=== PATIENT | female | born 1935 | race Hispanic/Latino ===

== ENCOUNTER 2020-02-15 12:21 | Inpatient (IN) | payer MEDICARE ==
--- NOTE | 2020-02-15 13:08 | RAD ---
EXAM: Single view of the chest HISTORY: Dyspnea and high blood glucose COMPARISON: 09/23/2010 FINDINGS: Single view of the chest shows an enlarged but stable cardiomediastinal silhouette. Increa sed interstitial markings are present. There may be superimposed airspace opacities overlying both lower lobes. No acute osseous abnormality. IMPRESSION: Bilateral lower lung infiltrates
[2020-02-15 13:32] LABS: #Lymphocytes 1.4 thou/uL (1.20-3.40); #Monocytes 0.4 thou/uL (0.11-0.59); #Neutrophils 3.7 thou/uL (1.40-6.50); %Basophils 0.3 % (0.0-1.0); %Eosinophils 0.3 % (0.0-10.0); %Lymphocytes 25.7 % (21.0-51.0); %Monocytes 6.7 % (0.0-10.0); Hemoglobin 14.1 g/dL (12.0-16.0); Mean Corpuscular HGB CONC 32.5 g/dL (32.0-36.0); Mean Corpuscular Volume 95.4 fL (78.0-98.0); Mean Platelet Volume 8.2 fL (7.4-10.4); Platelet Count 231 thou/uL (130-400); RBC Distribution Width 12.6 % (11.5-14.5); Red Blood Cell (RBC) Count 4.54 mill/uL (4.20-5.40); White Blood Cell (WBC) Count 5.5 thou/uL (4.8-10.8)
[2020-02-15 13:36] LABS: Actual Bicarbonate (HCO3a) 24.2 mEq/L (22-28); Analyzer IN Cardio ER; Base Excess (BEa) 0.2 mEq/L (-2.0 to +3.0); CO2 Tension 37.3 mmHg (35.0-45.0); Carboxyhemoglobin (COHb) 0.2 gm% (0.0-3.0); Hemoglobin (Hb) 14.3 g/dL (12.0-16.0); O2 Tension (PaO2), arterial 68.9 mmHg (> 60.0); Potassium - ABG Lab 4.49 mmol/L (3.70-5.30); pH, Arterial 7.43 (7.35-7.45)
[2020-02-15 13:38] LABS: ALV-art Gradient 84.115 mmHg (0-20); Puncture Site RRA
[2020-02-15 13:55] LABS: ALT (SGPT) 13 U/L (8-55); AST (SGOT) 26 U/L (5-34); Albumin 3.5 g/dL (3.4-4.8); Alkaline Phosphatase 60 U/L (40-110); Anion Gap 18 mmol/L (10-20); BUN (Urea Nitrogen) 30 mg/dL (9.8-20.1); Bilirubin, Total 0.2 mg/dL (0.2-1.2); Calc. Creatinine Clearance 0 mL/min (70-130); Carbon Dioxide 23 mmol/L (23-31); Chloride 97 mmol/L (98-107); Estimated GFR-MDRD 54; Globulin 3.9 g/dL (2.4-3.5); Glucose 429 mg/dL (83-110); Lipase 27 U/L (8-78); Magnesium 1.8 mg/dL (1.6-2.6); Potassium 4.6 mmol/L (3.5-5.1); Protein, Total 7.4 g/dL (6.0-8.3); Sodium 133 mmol/L (136-145)
[2020-02-15] MEDS ORDERED: Azithromycin 500 MG VIAL ONE (13:56)
[2020-02-15] MEDS ORDERED: cefTRIAXone\\ROCEPHIN 2 GM VIAL ONE (13:56)
[2020-02-15 15:21] LABS: SARS-CoV-2 NAA Rapid Test DETECTED (NotDetected)
[2020-02-15 16:29] LABS: Bacteria/HPF 1+ HPF (None Seen); Bilirubin Negative (Negative); Blood, Urine Negative (Negative); Clarity Clear (Clear); Glucose, Urine (Dipstick) Greater than 1000 mg/dL (Negative); Ketone, Urine Negative (Negative); Leukocyte 75 Leu/uL (Negative); Nitrite 1+ (Negative); Protein, Urine (Dipstick) 10 mg/dL (Neg-Trace); RBC/HPF 0-3 HPF (0-3); Specific Gravity, Urine 1.004 (1.002-1.036); Squamous Epithelial None Seen HPF (0-3); Urobilinogen Normal mg/dL (Less than 2); pH, Urine 5.5 (5.0-9.0)
[2020-02-15] MEDS ORDERED: Guaifenesin DM 100-10/5 ML UDCUP PO PRN (16:39)
[2020-02-15] MEDS ORDERED: Dextrose 5% in Water 1,000 ML IV PRN (16:39)
[2020-02-15] MEDS ORDERED: HYDROcodone/Acetaminophen 5/325 mg Tablet PO PRN (16:39)
[2020-02-15] MEDS ORDERED: Acetaminophen 325 MG TAB PO PRN (16:39)
[2020-02-15] MEDS ORDERED: Dextrose 50% Abboject 50 ML SYRINGE SLOW IVP PRN (16:39)
[2020-02-15] MEDS ORDERED: Ondansetron PF 4 MG/2 ML Vial IVP PRN (16:39)
[2020-02-15] MEDS ORDERED: guaiFENesin/Codeine Phosphate 200 mg/20 mg 10 ml UD Cup PO PRN (16:46)
[2020-02-15] MEDS ORDERED: Enoxaparin Sodium 40 MG/0.4 ML SYRINGE SC SCH (17:00)
[2020-02-15 17:05] LABS: Lactic Acid 1.9 mmol/L (0.5-2.2)
[2020-02-15 17:15] LABS: Troponin I Less than 0.010 ng/mL (< 0.028)
--- NOTE | 2020-02-15 18:16 | PDOC.HHP ---
Hospitalist HPI - History of Present Illness Diarrhea History of Present Illness: 85 YO F with a PMH of DM who was brought to the ER by her granddaughter on account of diarrhea and worsening AMS. Pt is Tajik speaking so hx is taken from granddaughter. It is stated that pt is mostly home bound due to a bad hip, but became ill a few days ago with diarrhea. Diarrhea was profuse and watery. Pt also had decreased appetite and so was not taking her insulin as prescribed. She then became confused and slightly lethargic so her family brought her to the ER. There was no reported fever, chills, nausea, vomiting or SOB. Upon presentation to the ER, pt was noted to be dehydrated, hyperglycemic but not DKA and positive for COVID. She has now been admitted for further evaluation. Hospitalist ROS - Review of Systems Constitutional: reports: weakness Eyes: denies: pain, vision change, conjunctivae inflammation, eyelid inflammation, redness, other ENT: denies: ear pain, ear discharge, nose pain, nose discharge, nose congestion, mouth pain, mouth swelling, throat pain, throat swelling, other Respiratory: denies: cough, dry, shortness of breath, hemoptysis, SOB with excertion, pleuritic pain, sputum, wheezing, other Cardiovascular: denies: chest pain, palpitations, orthopnea, paroxysmal noc. dyspnea, edema, light headedness, other Gastrointestinal: reports: diarrhea. denies: nausea, vomiting, abdominal pain, constipation, melena, hematochezia, other Genitourinary: denies: dysuria, frequency, incontinence, hematuria, retention, other Musculoskeletal: reports: leg pain Skin: denies: rash, lesions, brittani, bruising, other Neurological: reports: confusion Hospitalist History - Past Medical History Cardiac: reports: HTN Musculoskeletal: reports: Osteoarthritis Endocrine: reports: Diabetes - Past Surgical History Past Surgical History: reports: Other (Left Hip surgery) - Family History Family History: reports: diabetes mellitus - Social History Smoking Status: Never smoker Alcohol: reports: None Living Situation: With Family Domestic Violence: Negative Activity level: uses cane/walker - Exam General Appearance: NAD, awake alert Eye: PERRL, anicteric sclera ENT: normocephalic atraumatic Neck: supple, symmetric, no JVD, no thyromegaly Heart: RRR, no murmur, no gallops, normal peripheral pulses Respiratory: CTAB, no wheezes, no rales, no ronchi, normal chest expansion Gastrointestinal: soft, non-tender, non-distended, normal bowel sounds Extremities: no clubbing, no edema Skin: no lesions, no rashes Neurological: cranial nerve grossly intact, no focal deficits Musculoskeletal: normal strength, no muscle wasting Psychiatric: normal affect, A&O x 3, oriented to place Hospitalist Results - Labs Result Diagrams: 02/15/20 13:16 02/15/20 13:17 Lab results: WBC 5.5 thou/uL (4.8-10.8) 02/15/20 13:16 Hgb 14.1 g/dL (12.0-16.0) 02/15/20 13:16 Hct 43.3 % (36.0-47.0) 02/15/20 13:16 MCV 95.4 fL (78.0-98.0) 02/15/20 13:16 Plt Count 231 thou/uL (130-400) 02/15/20 13:16 Neutrophils % 67.0 % (42.0-75.0) 02/15/20 13:16 ESR Westergren 31 mm/hr (Less than 30) H 02/15/20 14:37 ABG pH 7.43 (7.35-7.45) 02/15/20 13:35 ABG pCO2 37.3 mmHg (35.0-45.0) 02/15/20 13:35 ABG pO2 68.9 mmHg (> 60.0) H 02/15/20 13:35 Sodium 133 mmol/L (136-145) L 02/15/20 13:17 Potassium 4.6 mmol/L (3.5-5.1) 02/15/20 13:17 Chloride 97 mmol/L (98-107) L 02/15/20 13:17 Carbon Dioxide 23 mmol/L (23-31) 02/15/20 13:17 BUN 30 mg/dL (9.8-20.1) H 02/15/20 13:17 Creatinine 0.98 mg/dL (0.6-1.1) 02/15/20 13:17 Glucose 429 mg/dL (83-110) H 02/15/20 13:17 Lactic Acid 1.9 mmol/L (0.5-2.2) 02/15/20 16:30 Calcium 9.0 mg/dL (7.8-10.44) 02/15/20 13:17 Total Bilirubin 0.2 mg/dL (0.2-1.2) 02/15/20 13:17 AST 26 U/L (5-34) 02/15/20 13:17 ALT 13 U/L (8-55) 02/15/20 13:17 Alkaline Phosphatase 60 U/L (40-110) 02/15/20 13:17 Troponin I Less than 0.010 ng/mL (< 0.028) 02/15/20 16:30 C-Reactive Protein 8.47 mg/dL (= or < 0.5) H 02/15/20 13:16 B-Natriuretic Peptide 43.5 pg/mL (0-100) 02/15/20 13:16 Serum Total Protein 7.4 g/dL (6.0-8.3) 02/15/20 13:17 Albumin 3.5 g/dL (3.4-4.8) 02/15/20 13:17 Lipase 27 U/L (8-78) 02/15/20 13:17 Urine Ketones Negative mg/dL (Negative) 02/15/20 16:00 Urine Blood Negative (Negative) 02/15/20 16:00 Urine Nitrite 1+ (Negative) A 02/15/20 16:00 Ur Leukocyte Esterase 75 Santiago/uL (Negative) A 02/15/20 16:00 Urine RBC 0-3 HPF (0-3) 02/15/20 16:00 Urine WBC 11-20 HPF (0-3) A 02/15/20 16:00 Ur Squamous Epith Cells None Seen HPF (0-3) 02/15/20 16:00 Urine Bacteria 1+ HPF (None Seen) A 02/15/20 16:00 Hospitalist H&P A/P - Problem (1) Diabetes Code(s): E11.9 - TYPE 2 DIABETES MELLITUS WITHOUT COMPLICATIONS Status: Acute Qualifiers: Diabetes mellitus type: type 2 Diabetes mellitus assisted insulin use: with set up inspector use Diabetes mellitus complication status: without complication Qualified Code(s): E11.9 - Type 2 diabetes mellitus without complications; Z79.4 - assisted (current) use of insulin Assessment and Plan: Uncontrolled. Its stated pt should be on 35 units of insulin daily but has been taking 25 units daily. BG has been running high at home for several weeks now. Will restart home dose of 35 units, increase as needed especially given current use of dexamethasone. Will cover with SSI. (2) COVID-19 Code(s): U07.1 - COVID-19 Status: Acute Assessment and Plan: Likely cause of diarrhea. Will start abx, steroids, vit c, vit d and zinc. Cont 02 support. (3) Encephalopathy Code(s): G93.40 - ENCEPHALOPATHY, UNSPECIFIED Status: Acute Assessment and Plan: Likely due to dehydration and hyperglycemia. Improved now sp hydration in the ER. (4) Dehydration Code(s): E86.0 - DEHYDRATION Status: Acute Assessment and Plan: Improved s/p hydration. Will need to be cautious with further hydration since pt has COVID. (5) Respiratory failure Code(s): J96.90 - RESPIRATORY FAILURE, UNSP, UNSP W HYPOXIA OR HYPERCAPNIA Status: Acute Qualifiers: Chronicity: acute Respiratory failure complication: hypoxia Qualified Code(s): J96.01 - Acute respiratory failure with hypoxia Assessment and Plan: Due to COVID. Cont oxygen support. (6) Diarrhea due to COVID-19 Code(s): U07.1 - COVID-19; A08.39 - OTHER VIRAL ENTERITIS Status: Acute Assessment and Plan: Will still check GI panel to r/o other sources. (7) Hip arthritis Code(s): M16.10 - UNILATERAL PRIMARY OSTEOARTHRITIS, UNSPECIFIED HIP Status: Acute Assessment and Plan: Has occasional pain. Walks with a walker. Will monitor for now. - Plan Plan: PPx: SCDs and Lovenox. CODE: FULL. Disposition: Admit as inpt.
[2020-02-15 20:20] LABS: Troponin I Less than 0.010 ng/mL (< 0.028)
[2020-02-15] MEDS: Benzonatate 100 MG CAP PO SCH (20:20)
[2020-02-15] MEDS ORDERED: HumaLOG 300 UNITS/3 ML VIAL SC PRN (20:53)
[2020-02-15] MEDS ORDERED: Famotidine 20 MG TAB PO SCH (21:00)
[2020-02-15] MEDS: Insulin Glargine 35 UNITS in Pre-Filled Syringe 1 EACH SC SCH (21:34)
[2020-02-16 06:28] LABS: Band 12 % (5-11); Hemoglobin 14.6 g/dL (12.0-16.0); Lymphocytes 32 % (21-51); MDiff Complete? YES; Mean Corpuscular HGB CONC 32.1 g/dL (32.0-36.0); Mean Corpuscular Hemoglobin 30.4 pg (27.0-31.0); Mean Corpuscular Volume 94.6 fL (78.0-98.0); Mean Platelet Volume 8.1 fL (7.4-10.4); Monocytes 8 % (0-10); Neutrophil 44 % (42-75); Platelet Count 228 thou/uL (130-400); Platelet Morphology Comment Appears Adequate; RBC Distribution Width 12.5 % (11.5-14.5); RBC Morphology Normal; Reactive Lymphocytes 4 % (0-10)
[2020-02-16 06:40] LABS: ALT (SGPT) 13 U/L (8-55); AST (SGOT) 28 U/L (5-34); Albumin 3.5 g/dL (3.4-4.8); Alkaline Phosphatase 60 U/L (40-110); Anion Gap 16 mmol/L (10-20); BUN (Urea Nitrogen) 15 mg/dL (9.8-20.1); Bilirubin, Total 0.2 mg/dL (0.2-1.2); Calc. Creatinine Clearance 53 mL/min (70-130); Calcium 8.8 mg/dL (7.8-10.44); Carbon Dioxide 26 mmol/L (23-31); Chloride 104 mmol/L (98-107); Estimated GFR-MDRD 84; Glucose 77 mg/dL (83-110); Potassium 3.5 mmol/L (3.5-5.1); Protein, Total 7.5 g/dL (6.0-8.3); Sodium 142 mmol/L (136-145)
[2020-02-16] MEDS: Enoxaparin Sodium 40 MG/0.4 ML SYRINGE SC SCH ×2 (10:24→20:28)
[2020-02-16] MEDS: Benzonatate 100 MG CAP PO SCH ×3 (10:25→20:28)
[2020-02-16] MEDS: Dexamethasone 4 mg/ml Vial SLOW IVP SCH (10:25)
[2020-02-16] MEDS: Zinc Sulfate 220 MG CAP PO SCH (10:26)
[2020-02-16] MEDS: Cholecalciferol 1,000 UNITS (25 MCG) TAB PO SCH (10:26)
[2020-02-16] MEDS ORDERED: REMDESIVIR (EUA) 200 MG in Sodium Chloride 0.9% 250 ML 210 ML IV SCH (13:30)
[2020-02-16] MEDS: Azithromycin 500 MG in Sodium Chloride 0.9% 250 ML 250 ML IVPB SCH (15:53)
[2020-02-16] MEDS: cefTRIAXone\\ROCEPHIN 1 GM in Sodium Chloride 0.9% 100 ML IVPB SCH (15:53)
--- NOTE | 2020-02-16 17:35 | PDOC.HOSPP ---
- Subjective Encounter Date: 02/16/20 Encounter Time: 10:00 Subjective: Patient seen for follow-up regarding COVID-19 infection. She reports feeling slightly better. - Objective Vital Signs & Weight: Vital Signs (12 hours) Temp Pulse Resp BP Pulse Ox 02/16/20 10:51 99.3 F 02/16/20 08:00 92 L 02/16/20 07:41 98.4 F 93 19 162/74 H 92 L Weight Weight 119 lb 14.4 oz I&O: 02/15/20 02/16/20 02/17/20 06:59 06:59 06:59 Intake Total 500 Output Total 600 Balance -100 Result Diagrams: 02/16/20 05:45 02/16/20 05:45 Additional Labs: Accuchecks 02/16/20 02/16/20 02/15/20 15:06 04:17 20:00 POC Glucose 153 H 96 349 H Hospitalist ROS - Review of Systems Cardiovascular: denies: chest pain, palpitations, orthopnea, paroxysmal noc. dyspnea, edema, light headedness Gastrointestinal: reports: diarrhea. denies: nausea, vomiting, abdominal pain, constipation, melena, hematochezia - Medication Medications: Active Medications Generic Name Dose Route Start Last Admin Trade Name Freq PRN Reason Stop Dose Admin Acetaminophen 650 mg 02/15/20 16:39 02/16/20 10:51 Acetaminophen 325 Mg Tab PO 650 mg Q4H PRN Administration Headache/Fever/Mild Pain (1-3) Benzonatate 100 mg 02/15/20 21:00 02/16/20 15:55 Benzonatate 100 Mg Cap PO 100 mg TID BRYAN Administration Cholecalciferol 2,000 units 02/16/20 09:00 02/16/20 10:26 Cholecalciferol 1,000 Units (25 Mcg) Tab PO 2,000 units DAILY BRYAN Administration Dexamethasone 6 mg 02/16/20 09:00 02/16/20 10:25 Dexamethasone 4 Mg/Ml Vial SLOW IVP 6 mg DAILY BRYAN Administration Enoxaparin Sodium 40 mg 02/16/20 09:00 02/16/20 10:24 Enoxaparin Sodium 40 Mg/0.4 Ml Syringe SC 40 mg 0900,2100 BRYAN Administration Ceftriaxone Sodium 1 gm/ 100 mls @ 200 mls/hr 02/16/20 14:00 02/16/20 15:53 Sodium Chloride IVPB 100 mls 1400 BRYAN Administration Azithromycin 500 mg/ Sodium 250 mls @ 250 mls/hr 02/16/20 15:00 02/16/20 15:53 Chloride IVPB 250 mls 1500 BRYAN Administration Insulin Glargine 35 units/ 0.35 mls @ 0 mls/hr 02/15/20 21:00 02/15/20 21:34 Miscellaneous Medication SC 0.35 mls HS BRYAN Administration Insulin Human Lispro 0 units 02/15/20 20:53 02/15/20 21:35 Humalog 300 Units/3 Ml Vial SC 4 unit .BEDTIME SLIDING SC PRN Administration Bedtime Correctional Scale Zinc Sulfate 220 mg 02/16/20 09:00 02/16/20 10:26 Zinc Sulfate 220 Mg Cap PO 220 mg DAILY BRYAN Administration - Exam General Appearance: awake alert Eye: anicteric sclera ENT: moist mucosa Neck: supple Heart: RRR Respiratory: CTAB Gastrointestinal: soft, non-tender Extremities: no edema Skin: no rashes Psychiatric: normal affect, normal behavior Hosp A/P - Plan -Assessment (1) COVID-19 infection Code(s): U07.1 - COVID-19; A08.39 - OTHER VIRAL ENTERITIS Status: Acute (2) Acute hypoxic respiratory failure Code(s): J96.90 - RESPIRATORY FAILURE, UNSP, UNSP W HYPOXIA OR HYPERCAPNIA Status: Acute (3) Diarrhea due to COVID-19 Code(s): U07.1 - COVID-19; A08.39 - OTHER VIRAL ENTERITIS Status: Acute Assessment and Plan: Will still check GI panel to r/o other sources. (4) Diabetes Code(s): E11.9 - TYPE 2 DIABETES MELLITUS WITHOUT COMPLICATIONS Status: Chronic (5) Hip arthritis Code(s): M16.10 - UNILATERAL PRIMARY OSTEOARTHRITIS, UNSPECIFIED HIP Status: Chronic (6) Encephalopathy Code(s): G93.40 - ENCEPHALOPATHY, UNSPECIFIED Status: Resolved (4) Dehydration Code(s): E86.0 - DEHYDRATION Status: Resolved - Plan Plan: Continue dexamethasone. Continue zinc and vitamin C. Patient was hypoxic on room air, start remdesivir. Administer convalescent plasma. Check stool studies as well as C. difficile test. Continue Accu-Cheks and insulin sliding scale. Updated patient's daughter and granddaughter over the telephone.
[2020-02-16] MEDS: Famotidine 20 MG TAB PO SCH (20:28)
[2020-02-16] MEDS: Insulin Glargine 35 UNITS in Pre-Filled Syringe 1 EACH SC SCH (20:28)
[2020-02-16] MEDS: HumaLOG 300 UNITS/3 ML VIAL SC PRN (20:37)
[2020-02-17] MEDS: HumaLOG 300 UNITS/3 ML VIAL SC PRN (05:57)
[2020-02-17] MEDS: Enoxaparin Sodium 40 MG/0.4 ML SYRINGE SC SCH ×2 (08:51→20:28)
[2020-02-17] MEDS: Dexamethasone 4 mg/ml Vial SLOW IVP SCH (08:52)
[2020-02-17] MEDS: Zinc Sulfate 220 MG CAP PO SCH (08:52)
[2020-02-17] MEDS: Benzonatate 100 MG CAP PO SCH ×3 (08:53→20:28)
[2020-02-17] MEDS ORDERED: Ascorbic Acid 500 mg Chewable Tablet PO SCH (12:00)
[2020-02-17] MEDS: Cholecalciferol 1,000 UNITS (25 MCG) TAB PO SCH (15:25)
[2020-02-17] MEDS: REMDESIVIR (EUA) 100 MG in Sodium Chloride 0.9% 250 ML 230 ML IV SCH (15:26)
[2020-02-17] MEDS: Azithromycin 500 MG in Sodium Chloride 0.9% 250 ML 250 ML IVPB SCH ×2 (16:45→18:30)
[2020-02-17] MEDS: cefTRIAXone\\ROCEPHIN 1 GM in Sodium Chloride 0.9% 100 ML IVPB SCH ×2 (16:45→17:10)
--- NOTE | 2020-02-17 18:55 | PDOC.HOSPP ---
- Subjective Encounter Date: 02/17/20 Encounter Time: 11:00 Subjective: Patient seen for follow-up regarding COVID-19 infection. She reports feeling better. - Objective Vital Signs & Weight: Vital Signs (12 hours) Temp Pulse Resp BP Pulse Ox 02/17/20 16:55 90 L 02/17/20 12:55 94 L 02/17/20 08:02 97.9 F 70 18 153/68 H 90 L Weight Weight 119 lb 14.4 oz Most Recent Monitor Data Heart Rate from ECG 84 NIBP 125/65 I&O: 02/16/20 02/17/20 02/18/20 06:59 06:59 06:59 Intake Total 262 830 3151 Output Total 600 Balance -094 529 3832 Result Diagrams: 02/16/20 05:45 02/16/20 05:45 Additional Labs: Accuchecks 02/17/20 02/17/20 02/17/20 17:22 11:01 05:08 POC Glucose 179 H 148 H 194 H 02/16/20 20:31 POC Glucose 313 H Labs and MAR reviewed by ok Hospitalist ROS - Review of Systems Respiratory: reports: SOB with excertion. denies: cough, shortness of breath, pleuritic pain, wheezing Cardiovascular: denies: chest pain, palpitations, orthopnea, paroxysmal noc. dyspnea, edema, light headedness - Medication Medications: Active Medications Generic Name Dose Route Start Last Admin Trade Name Freq PRN Reason Stop Dose Admin Acetaminophen 650 mg 02/15/20 16:39 02/16/20 10:51 Acetaminophen 325 Mg Tab PO 650 mg Q4H PRN Administration Headache/Fever/Mild Pain (1-3) Benzonatate 100 mg 02/15/20 21:00 02/17/20 15:26 Benzonatate 100 Mg Cap PO 100 mg TID BRYAN Administration Cholecalciferol 2,000 units 02/16/20 09:00 02/17/20 15:25 Cholecalciferol 1,000 Units (25 Mcg) Tab PO 2,000 units DAILY BRYAN Administration Dexamethasone 6 mg 02/16/20 09:00 02/17/20 08:52 Dexamethasone 4 Mg/Ml Vial SLOW IVP 6 mg DAILY BRYAN Administration Enoxaparin Sodium 40 mg 02/16/20 09:00 02/17/20 08:51 Enoxaparin Sodium 40 Mg/0.4 Ml Syringe SC 40 mg 0900,2100 BRYAN Administration Famotidine 20 mg 02/16/20 21:00 02/16/20 20:28 Famotidine 20 Mg Tab PO 20 mg QPM BRYAN Administration Insulin Glargine 35 units/ 0.35 mls @ 0 mls/hr 02/15/20 21:00 02/16/20 20:28 Miscellaneous Medication SC 0.35 mls HS BRYAN Administration Remdesivir 100 mg/ Sodium 250 mls @ 250 mls/hr 02/17/20 14:00 02/17/20 15:26 Chloride IV 02/20/20 14:59 250 mls 1400 BRYAN Administration Ceftriaxone Sodium 1 gm/ 100 mls @ 200 mls/hr 02/17/20 16:00 02/17/20 17:10 Sodium Chloride IVPB 100 mls 1600 BRYAN Administration Azithromycin 500 mg/ Sodium 250 mls @ 250 mls/hr 02/17/20 17:00 02/17/20 18:30 Chloride IVPB 250 mls 1700 BRYAN Administration Insulin Human Lispro 0 units 02/15/20 20:53 02/17/20 05:57 Humalog 300 Units/3 Ml Vial SC 2 unit .MILD SLIDING SCALE PRN Administration Mild Correctional Scale Insulin Human Lispro 0 units 02/15/20 20:53 02/15/20 21:35 Humalog 300 Units/3 Ml Vial SC 4 unit .BEDTIME SLIDING SC PRN Administration Bedtime Correctional Scale Zinc Sulfate 220 mg 02/16/20 09:00 02/17/20 08:52 Zinc Sulfate 220 Mg Cap PO 220 mg DAILY BRYAN Administration - Exam General Appearance: awake alert Eye: anicteric sclera ENT: moist mucosa Neck: supple Heart: RRR Respiratory: CTAB Gastrointestinal: soft, non-tender Skin: no rashes Musculoskeletal: no muscle wasting Psychiatric: normal affect, normal behavior Hosp A/P - Plan -Assessment (1) COVID-19 infection Code(s): U07.1 - COVID-19; A08.39 - OTHER VIRAL ENTERITIS Status: Acute (2) Acute hypoxic respiratory failure Code(s): J96.90 - RESPIRATORY FAILURE, UNSP, UNSP W HYPOXIA OR HYPERCAPNIA Status: Acute (3) Diarrhea due to COVID-19 Code(s): U07.1 - COVID-19; A08.39 - OTHER VIRAL ENTERITIS Status: Acute Assessment and Plan: Will still check GI panel to r/o other sources. (4) Diabetes Code(s): E11.9 - TYPE 2 DIABETES MELLITUS WITHOUT COMPLICATIONS Status: Chronic (5) Hip arthritis Code(s): M16.10 - UNILATERAL PRIMARY OSTEOARTHRITIS, UNSPECIFIED HIP Status: Chronic (6) Encephalopathy Code(s): G93.40 - ENCEPHALOPATHY, UNSPECIFIED Status: Resolved (4) Dehydration Code(s): E86.0 - DEHYDRATION Status: Resolved - Plan Plan: Continue remdesivir, dexamethasone, vitamin C and zinc. Patient has received convalescent plasma. Check stool studies as well as C. difficile test. Continue Accu-Cheks and insulin sliding scale. Patient is improving clinically. Follow inflammatory markers. Updated patient's granddaughter over the telephone.
[2020-02-17] MEDS: Insulin Glargine 35 UNITS in Pre-Filled Syringe 1 EACH SC SCH (20:28)
[2020-02-17] MEDS: Famotidine 20 MG TAB PO SCH (20:28)
[2020-02-18 07:23] LABS: ALT (SGPT) 19 U/L (8-55); AST (SGOT) 41 U/L (5-34); Albumin 3.5 g/dL (3.4-4.8); Alkaline Phosphatase 59 U/L (40-110); Anion Gap 16 mmol/L (10-20); BUN (Urea Nitrogen) 22 mg/dL (9.8-20.1); Bilirubin, Total 0.2 mg/dL (0.2-1.2); CRP (Inflammatory) 4.89 mg/dL (= or < 0.5); Calc. Creatinine Clearance 56 mL/min (70-130); Calcium 8.5 mg/dL (7.8-10.44); Carbon Dioxide 26 mmol/L (23-31); Chloride 102 mmol/L (98-107); Estimated GFR-MDRD 90; Globulin 4.1 g/dL (2.4-3.5); Glucose 118 mg/dL (83-110); Potassium 3.1 mmol/L (3.5-5.1); Protein, Total 7.6 g/dL (6.0-8.3); Sodium 141 mmol/L (136-145)
[2020-02-18] MEDS: Dexamethasone 4 mg/ml Vial SLOW IVP SCH (07:56)
[2020-02-18] MEDS: Cholecalciferol 1,000 UNITS (25 MCG) TAB PO SCH (07:56)
[2020-02-18] MEDS: Ascorbic Acid 500 mg Chewable Tablet PO SCH (07:57)
[2020-02-18] MEDS: Enoxaparin Sodium 40 MG/0.4 ML SYRINGE SC SCH ×2 (07:57→20:33)
[2020-02-18] MEDS: Benzonatate 100 MG CAP PO SCH ×3 (07:57→20:33)
[2020-02-18] MEDS: Zinc Sulfate 220 MG CAP PO SCH (07:57)
[2020-02-18] MEDS: REMDESIVIR (EUA) 100 MG in Sodium Chloride 0.9% 250 ML 230 ML IV SCH (14:21)
[2020-02-18] MEDS: cefTRIAXone\\ROCEPHIN 1 GM in Sodium Chloride 0.9% 100 ML IVPB SCH (16:56)
[2020-02-18] MEDS: HumaLOG 300 UNITS/3 ML VIAL SC PRN (17:17)
[2020-02-18] MEDS: Azithromycin 500 MG in Sodium Chloride 0.9% 250 ML 250 ML IVPB SCH (18:20)
--- NOTE | 2020-02-18 18:30 | PDOC.HOSPP ---
- Subjective Encounter Date: 02/18/20 Encounter Time: 11:00 Subjective: Patient seen for follow-up regarding COVID-19 infection. Denies fevers or chills. - Objective Vital Signs & Weight: Vital Signs (12 hours) Temp Pulse Resp BP Pulse Ox 02/18/20 08:00 98.7 F 83 18 156/72 H 94 L Weight Weight 119 lb 14.4 oz Most Recent Monitor Data Heart Rate from ECG 84 NIBP 125/65 I&O: 02/17/20 02/18/20 02/19/20 06:59 06:59 06:59 Intake Total 240 1100 Balance 240 1100 Result Diagrams: 02/16/20 05:45 02/18/20 06:50 Additional Labs: Accuchecks 02/18/20 02/18/20 02/18/20 17:00 12:01 05:38 POC Glucose 269 H 122 H 133 H 02/17/20 20:32 POC Glucose 199 H I reviewed patient's labs and MAR Hospitalist ROS - Review of Systems Respiratory: denies: cough, dry, shortness of breath, hemoptysis, SOB with excertion, pleuritic pain, sputum, wheezing Gastrointestinal: denies: nausea, vomiting, abdominal pain, diarrhea, constipation, melena, hematochezia - Medication Medications: Active Medications Generic Name Dose Route Start Last Admin Trade Name Jovanyq PRN Reason Stop Dose Admin Acetaminophen 650 mg 02/15/20 16:39 02/16/20 10:51 Acetaminophen 325 Mg Tab PO 650 mg Q4H PRN Administration Headache/Fever/Mild Pain (1-3) Ascorbic Acid 1,000 mg 02/18/20 09:00 02/18/20 07:57 Ascorbic Acid 500 Mg Chewable Tablet PO 1,000 mg DAILY BRYAN Administration Benzonatate 100 mg 02/15/20 21:00 02/18/20 14:22 Benzonatate 100 Mg Cap PO 100 mg TID BRYAN Administration Cholecalciferol 2,000 units 02/16/20 09:00 02/18/20 07:56 Cholecalciferol 1,000 Units (25 Mcg) Tab PO 2,000 units DAILY BRYAN Administration Dexamethasone 6 mg 02/16/20 09:00 02/18/20 07:56 Dexamethasone 4 Mg/Ml Vial SLOW IVP 6 mg DAILY BRYAN Administration Enoxaparin Sodium 40 mg 02/16/20 09:00 02/18/20 07:57 Enoxaparin Sodium 40 Mg/0.4 Ml Syringe SC 40 mg 0900,2100 BRYAN Administration Famotidine 20 mg 02/16/20 21:00 02/17/20 20:28 Famotidine 20 Mg Tab PO 20 mg QPM BRYAN Administration Insulin Glargine 35 units/ 0.35 mls @ 0 mls/hr 02/15/20 21:00 02/17/20 20:28 Miscellaneous Medication SC 0.35 mls HS BRYAN Administration Remdesivir 100 mg/ Sodium 250 mls @ 250 mls/hr 02/17/20 14:00 02/18/20 14:21 Chloride IV 02/20/20 14:59 250 mls 1400 BRYAN Administration Ceftriaxone Sodium 1 gm/ 100 mls @ 200 mls/hr 02/17/20 16:00 02/18/20 16:56 Sodium Chloride IVPB 100 mls 1600 BRYAN Administration Azithromycin 500 mg/ Sodium 250 mls @ 250 mls/hr 02/17/20 17:00 02/18/20 18:20 Chloride IVPB 250 mls 1700 BRYAN Administration Insulin Human Lispro 0 units 02/15/20 20:53 02/18/20 17:17 Humalog 300 Units/3 Ml Vial SC 4 unit .MILD SLIDING SCALE PRN Administration Mild Correctional Scale Insulin Human Lispro 0 units 02/15/20 20:53 02/15/20 21:35 Humalog 300 Units/3 Ml Vial SC 4 unit .BEDTIME SLIDING SC PRN Administration Bedtime Correctional Scale Zinc Sulfate 220 mg 02/16/20 09:00 02/18/20 07:57 Zinc Sulfate 220 Mg Cap PO 220 mg DAILY BRYAN Administration - Exam General Appearance: awake alert Eye: anicteric sclera ENT: moist mucosa Neck: supple Heart: RRR Respiratory: CTAB Gastrointestinal: soft, non-tender Skin: no rashes Psychiatric: normal affect Hosp A/P - Plan -Assessment (1) Diarrhea due to COVID-19 Code(s): U07.1 - COVID-19; A08.39 - OTHER VIRAL ENTERITIS Status: Acute Assessment and Plan: Will still check GI panel to r/o other sources. (2) Acute hypoxic respiratory failure Code(s): J96.90 - RESPIRATORY FAILURE, UNSP, UNSP W HYPOXIA OR HYPERCAPNIA Status: Acute (3) Diabetes Code(s): E11.9 - TYPE 2 DIABETES MELLITUS WITHOUT COMPLICATIONS Status: Chronic (4) Hip arthritis Code(s): M16.10 - UNILATERAL PRIMARY OSTEOARTHRITIS, UNSPECIFIED HIP Status: Chronic (5) Encephalopathy Code(s): G93.40 - ENCEPHALOPATHY, UNSPECIFIED Status: Resolved (6) Dehydration Code(s): E86.0 - DEHYDRATION Status: Resolved - Plan Plan: Diarrhea has resolved. Patient is on remdesivir, dexamethasone, vitamin C and zinc. Patient has received convalescent plasma during this hospitalization.. Continue Accu-Cheks and insulin sliding scale. Patient is improving clinically. Follow inflammatory markers. Updated patient's granddaughter over the telephone. Ambulate patient.
[2020-02-18] MEDS: Famotidine 20 MG TAB PO SCH (20:32)
[2020-02-18] MEDS: Insulin Glargine 35 UNITS in Pre-Filled Syringe 1 EACH SC SCH (20:49)
[2020-02-19 06:29] LABS: #Lymphocytes 1.6 thou/uL (1.20-3.40); #Monocytes 0.8 thou/uL (0.11-0.59); #Neutrophils 4.5 thou/uL (1.40-6.50); %Eosinophils 0.1 % (0.0-10.0); %Lymphocytes 22.9 % (21.0-51.0); %Monocytes 12.1 % (0.0-10.0); %Neutrophils 64.9 % (42.0-75.0); Hemoglobin 15.6 g/dL (12.0-16.0); Mean Corpuscular HGB CONC 32.5 g/dL (32.0-36.0); Mean Corpuscular Hemoglobin 30.9 pg (27.0-31.0); Mean Corpuscular Volume 95.1 fL (78.0-98.0); Mean Platelet Volume 8.2 fL (7.4-10.4); Platelet Count 311 thou/uL (130-400); RBC Distribution Width 12.6 % (11.5-14.5); Red Blood Cell (RBC) Count 5.07 mill/uL (4.20-5.40)
[2020-02-19 06:49] LABS: ALT (SGPT) 18 U/L (8-55); AST (SGOT) 35 U/L (5-34); Albumin 3.4 g/dL (3.4-4.8); Alkaline Phosphatase 57 U/L (40-110); Anion Gap 16 mmol/L (10-20); BUN (Urea Nitrogen) 25 mg/dL (9.8-20.1); Bilirubin, Total 0.2 mg/dL (0.2-1.2); Calc. Creatinine Clearance 50 mL/min (70-130); Calcium 8.5 mg/dL (7.8-10.44); Carbon Dioxide 24 mmol/L (23-31); Chloride 105 mmol/L (98-107); Estimated GFR-MDRD 78; Globulin 4.1 g/dL (2.4-3.5); Glucose 104 mg/dL (83-110); Potassium 3.4 mmol/L (3.5-5.1); Protein, Total 7.5 g/dL (6.0-8.3); Sodium 142 mmol/L (136-145)
[2020-02-19] MEDS: Cholecalciferol 1,000 UNITS (25 MCG) TAB PO SCH (08:00)
[2020-02-19] MEDS: Zinc Sulfate 220 MG CAP PO SCH (08:07)
[2020-02-19] MEDS: Dexamethasone 4 mg/ml Vial SLOW IVP SCH (08:08)
[2020-02-19] MEDS: Benzonatate 100 MG CAP PO SCH ×3 (08:08→20:58)
[2020-02-19] MEDS: Ascorbic Acid 500 mg Chewable Tablet PO SCH (08:10)
[2020-02-19] MEDS: Enoxaparin Sodium 40 MG/0.4 ML SYRINGE SC SCH ×2 (13:00→20:58)
[2020-02-19 14:10] VITALS: BMI 24.2
[2020-02-19] MEDS: REMDESIVIR (EUA) 100 MG in Sodium Chloride 0.9% 250 ML 230 ML IV SCH (15:01)
[2020-02-19] MEDS: cefTRIAXone\\ROCEPHIN 1 GM in Sodium Chloride 0.9% 100 ML IVPB SCH (17:16)
--- NOTE | 2020-02-19 17:20 | PDOC.HOSPP ---
- Subjective Encounter Date: 02/19/20 Encounter Time: 12:30 Subjective: Patient seen for follow-up regarding COVID-19 infection. She reports vomiting today. She denies fevers or chills. - Objective Vital Signs & Weight: Vital Signs (12 hours) Temp Pulse Resp BP Pulse Ox Pulse Ox Pulse Ox 02/19/20 10:56 92 L 92 L 02/19/20 08:00 97.3 F L 69 19 153/77 H 94 L Weight Admit Weight 119 lb 14.4 oz Weight 119 lb 14.4 oz Most Recent Monitor Data Heart Rate from ECG 84 NIBP 125/65 I&O: 02/18/20 02/19/20 02/20/20 06:59 06:59 06:59 Intake Total 1100 440 Output Total 650 Balance 1100 -210 Result Diagrams: 02/19/20 06:01 02/19/20 06:01 Additional Labs: Accuchecks 02/19/20 02/19/20 02/19/20 11:36 08:24 05:37 POC Glucose 102 H 70 83 02/19/20 02/18/20 05:18 20:35 POC Glucose 59 L* 187 H Labs and MAR reviewed by nm Hospitalist ROS - Review of Systems Gastrointestinal: reports: nausea, vomiting. denies: abdominal pain, diarrhea, constipation, melena, hematochezia Genitourinary: denies: dysuria, frequency, incontinence, hematuria, retention - Medication Medications: Active Medications Generic Name Dose Route Start Last Admin Trade Name Freq PRN Reason Stop Dose Admin Acetaminophen 650 mg 02/15/20 16:39 02/16/20 10:51 Acetaminophen 325 Mg Tab PO 650 mg Q4H PRN Administration Headache/Fever/Mild Pain (1-3) Ascorbic Acid 1,000 mg 02/18/20 09:00 02/19/20 08:10 Ascorbic Acid 500 Mg Chewable Tablet PO Not Given DAILY BRYAN Benzonatate 100 mg 02/15/20 21:00 02/19/20 15:02 Benzonatate 100 Mg Cap PO 100 mg TID BRYAN Administration Cholecalciferol 2,000 units 02/16/20 09:00 02/19/20 08:00 Cholecalciferol 1,000 Units (25 Mcg) Tab PO 2,000 units DAILY BRYAN Administration Dexamethasone 6 mg 02/16/20 09:00 02/19/20 08:08 Dexamethasone 4 Mg/Ml Vial SLOW IVP 6 mg DAILY BRYAN Administration Enoxaparin Sodium 40 mg 02/16/20 09:00 02/19/20 13:00 Enoxaparin Sodium 40 Mg/0.4 Ml Syringe SC 40 mg 0900,2100 BRYAN Administration Famotidine 20 mg 02/16/20 21:00 02/18/20 20:32 Famotidine 20 Mg Tab PO 20 mg QPM BRYAN Administration Insulin Glargine 35 units/ 0.35 mls @ 0 mls/hr 02/15/20 21:00 02/18/20 20:49 Miscellaneous Medication SC 0.35 mls HS BRYAN Administration Remdesivir 100 mg/ Sodium 250 mls @ 250 mls/hr 02/17/20 14:00 02/19/20 15:01 Chloride IV 02/20/20 14:59 250 mls 1400 BRYAN Administration Ceftriaxone Sodium 1 gm/ 100 mls @ 200 mls/hr 02/17/20 16:00 02/19/20 17:16 Sodium Chloride IVPB 100 mls 1600 BRYAN Administration Azithromycin 500 mg/ Sodium 250 mls @ 250 mls/hr 02/17/20 17:00 02/18/20 18:20 Chloride IVPB 250 mls 1700 BRYAN Administration Insulin Human Lispro 0 units 02/15/20 20:53 02/18/20 17:17 Humalog 300 Units/3 Ml Vial SC 4 unit .MILD SLIDING SCALE PRN Administration Mild Correctional Scale Insulin Human Lispro 0 units 02/15/20 20:53 02/15/20 21:35 Humalog 300 Units/3 Ml Vial SC 4 unit .BEDTIME SLIDING SC PRN Administration Bedtime Correctional Scale Zinc Sulfate 220 mg 02/16/20 09:00 02/19/20 08:07 Zinc Sulfate 220 Mg Cap PO 220 mg DAILY BRYAN Administration - Exam General Appearance: awake alert ENT: normocephalic atraumatic Neck: supple Heart: RRR Respiratory: CTAB Gastrointestinal: soft, non-tender Skin: no rashes Psychiatric: normal affect, normal behavior Hosp A/P - Plan -Assessment (1) Diarrhea due to COVID-19 Code(s): U07.1 - COVID-19; A08.39 - OTHER VIRAL ENTERITIS Status: Acute Assessment and Plan: Will still check GI panel to r/o other sources. (2) Acute hypoxic respiratory failure Code(s): J96.90 - RESPIRATORY FAILURE, UNSP, UNSP W HYPOXIA OR HYPERCAPNIA Status: Acute (3) Diabetes Code(s): E11.9 - TYPE 2 DIABETES MELLITUS WITHOUT COMPLICATIONS Status: Chronic (4) Hip arthritis Code(s): M16.10 - UNILATERAL PRIMARY OSTEOARTHRITIS, UNSPECIFIED HIP Status: Chronic (5) Encephalopathy Code(s): G93.40 - ENCEPHALOPATHY, UNSPECIFIED Status: Resolved (6) Dehydration Code(s): E86.0 - DEHYDRATION Status: Resolved - Plan Plan: Vomiting likely secondary to remdesivir use. Diarrhea has resolved. Continue remdesivir, dexamethasone, vitamin C and zinc. Status post convalescent plasma during this hospitalization.. Continue Accu-Cheks and insulin sliding scale. Patient is improving clinically. Follow inflammatory markers. Updated patient's granddaughter over the telephone. PT eval/treat
[2020-02-19] MEDS: Azithromycin 500 MG in Sodium Chloride 0.9% 250 ML 250 ML IVPB SCH (18:23)
[2020-02-19] MEDS: Famotidine 20 MG TAB PO SCH (20:58)
[2020-02-19] MEDS: Cefdinir 300 MG CAP PO SCH (20:58)
[2020-02-19] MEDS: Insulin Glargine 35 UNITS in Pre-Filled Syringe 1 EACH SC SCH (21:00)
[2020-02-20 06:46] LABS: #Lymphocytes 1.5 thou/uL (1.20-3.40); #Monocytes 0.8 thou/uL (0.11-0.59); #Neutrophils 3.8 thou/uL (1.40-6.50); %Basophils 0.2 % (0.0-1.0); %Eosinophils 0.1 % (0.0-10.0); %Monocytes 13.1 % (0.0-10.0); %Neutrophils 61.6 % (42.0-75.0); Hemoglobin 15.6 g/dL (12.0-16.0); Mean Corpuscular HGB CONC 31.7 g/dL (32.0-36.0); Mean Corpuscular Volume 94.7 fL (78.0-98.0); Mean Platelet Volume 8.3 fL (7.4-10.4); Platelet Count 282 thou/uL (130-400); RBC Distribution Width 12.5 % (11.5-14.5); Red Blood Cell (RBC) Count 5.21 mill/uL (4.20-5.40); White Blood Cell (WBC) Count 6.2 thou/uL (4.8-10.8)
[2020-02-20 07:13] LABS: ALT (SGPT) 24 U/L (8-55); AST (SGOT) 45 U/L (5-34); Albumin 3.3 g/dL (3.4-4.8); Alkaline Phosphatase 60 U/L (40-110); Anion Gap 16 mmol/L (10-20); BUN (Urea Nitrogen) 24 mg/dL (9.8-20.1); Bilirubin, Total 0.3 mg/dL (0.2-1.2); CRP (Inflammatory) 1.61 mg/dL (= or < 0.5); Calc. Creatinine Clearance 52 mL/min (70-130); Calcium 8.6 mg/dL (7.8-10.44); Carbon Dioxide 25 mmol/L (23-31); Chloride 103 mmol/L (98-107); Estimated GFR-MDRD 82; Globulin 4.3 g/dL (2.4-3.5); Glucose 116 mg/dL (83-110); Potassium 3.3 mmol/L (3.5-5.1); Protein, Total 7.6 g/dL (6.0-8.3); Sodium 141 mmol/L (136-145)
[2020-02-20 07:55] VITALS: TEMP 98.1
[2020-02-20 08:12] LABS: ALT (SGPT) 24 U/L (8-55); AST (SGOT) 46 U/L (5-34); Albumin 3.3 g/dL (3.4-4.8); Alkaline Phosphatase 63 U/L (40-110); Bilirubin, Direct 0.1 mg/dL (0.1-0.3); Bilirubin, Total 0.3 mg/dL (0.2-1.2); Protein, Total 7.6 g/dL (6.0-8.3)
[2020-02-20] MEDS: Benzonatate 100 MG CAP PO SCH ×2 (08:45→14:35)
[2020-02-20] MEDS: Ascorbic Acid 500 mg Chewable Tablet PO SCH (08:45)
[2020-02-20] MEDS: Cholecalciferol 1,000 UNITS (25 MCG) TAB PO SCH (08:46)
[2020-02-20] MEDS: Cefdinir 300 MG CAP PO SCH (08:46)
[2020-02-20] MEDS: Dexamethasone 4 mg/ml Vial SLOW IVP SCH (08:46)
[2020-02-20] MEDS: Zinc Sulfate 220 MG CAP PO SCH (08:46)
[2020-02-20] MEDS: Enoxaparin Sodium 40 MG/0.4 ML SYRINGE SC SCH (08:46)
[2020-02-20 12:29] VITALS: BP 150/84
--- NOTE | 2020-02-20 13:38 | PDOC.DS.DS ---
Provider - Provider Date of Admission: 02/15/20 14:40 Date of Discharge: 02/20/20 Admitting Provider: Quiana Gunn MD Primary Care Physician: Regulo Durham MD Course - Hospital Course Hospital Course: Discharge diagnosis: 1. COVID-19 infection 2. Hypokalemia 3. UTI 4. Pneumonia 5. Acute hypoxic respiratory failure Hospital course: Patient is a pleasant 80-year-old lady who was admitted to the hospital on February 15, 2020 for diarrhea and pneumonia in the context of COVID-19 infection. She was treated with dexamethasone, vitamin C, zinc and remdesivir. Telemetry shows normal sinus rhythm was needing 4 L/min of oxygen to maintain her resting oxygen saturation above 90%. She will need home oxygen. Arrangements are being made for home oxygen prior to discharge. She also been advised to check her blood sugar 3 times a day and shows readings to her primary care provider. Many thanks for allowing me to participate in your patient's care. Please feel free to contact me with any questions or concerns. Discharge destination: Home Total amount of time spent coordinating this discharge: 32 minutes Resuscitation Status: 02/15/20 16:39 Resuscitation Status Routine Resuscitation Status: FULL: Full Resuscitation Discussed with: Patient - Labs Lab Results: 02/20/20 06:13 02/20/20 06:13 Abnormal Lab Results - Last 48 hrs 02/19/20 06:01: Potassium 3.4 L, BUN 25 H, AST 35 H, Globulin 4.1 H, Albumin/Globulin Ratio 0.8 L 02/19/20 06:01: Hct 48.2 H, Monocytes % 12.1 H, Monocytes # 0.8 H 02/20/20 06:13: Potassium 3.3 L, BUN 24 H, AST 45 H, C-Reactive Protein 1.61 H, Albumin 3.3 L, Globulin 4.3 H, Albumin/Globulin Ratio 0.8 L 02/20/20 06:13: D-Dimer 0.56 H 02/20/20 06:13: Lactate Dehydrogenase 268 H 02/20/20 06:13: Hct 49.4 H, MCHC 31.7 L, Monocytes % 13.1 H, Monocytes # 0.8 H 02/20/20 06:13: AST 46 H, Albumin 3.3 L Microbiology - Entire Visit 02/15/20 13:15 Venous blood - Left Arm Blood Culture - Preliminary NO GROWTH AT 48 HOURS 02/15/20 13:15 Venous blood - Right Arm Blood Culture - Preliminary NO GROWTH AT 48 HOURS 02/15/20 16:00 Urine voided Urine Culture - Final 02/15/20 14:20 Nasal swab Influenza Types A,B Direct EIA - Final - Physical Exam Vitals: Vital Signs (12 hours) Temp Pulse Resp BP Pulse Ox 02/20/20 12:20 98.1 F 65 18 150/84 H 93 L 02/20/20 08:00 93 L 02/20/20 07:46 98.1 F 69 18 152/85 H 93 L 02/20/20 04:45 97.4 F L 68 18 152/83 H 96 Weight Admit Weight 119 lb 14.4 oz Weight 119 lb 14.4 oz Most Recent Monitor Data Heart Rate from ECG 84 NIBP 125/65 Physical Exam: The patient was seen and examined on the day of discharge. Patient denies chest pain or shortness of breath. Vital signs are stable. S1 and S2 are heard. Tulio gs are clear to auscultation bilaterally. Plan - Discharge Medications Prescriptions: RX: Dexamethasone 6 mg PO DAILY #5 tablet Ascorbic Acid [Vitamin C] 1,000 mg PO DAILY #5 tablet Zinc Sulfate [Zinc-220] 220 mg PO DAILY #5 capsule Home Medications: Medication Instructions Recorded Confirmed Type Amlodipine Besylate [amLODIPine 5 mg PO QPM 02/16/20 02/16/20 History Besylate] Levothyroxine Sodium [Synthroid] 75 mcg PO DAILY 02/16/20 02/16/20 History Lisinopril [Zestril] 20 mg PO DAILY 02/16/20 02/16/20 History Metoprolol Succinate [Toprol XL] 25 mg PO DAILY 02/16/20 02/16/20 History Simvastatin [Zocor] 20 mg PO HS 02/16/20 02/16/20 History metFORMIN [Glucophage] 1,000 mg PO QPM-WM 02/16/20 02/16/20 History Ascorbic Acid [Vitamin C] 1,000 mg PO DAILY #5 tablet 02/20/20 Rx RX: Dexamethasone 6 mg PO DAILY #5 tablet 02/20/20 Rx Zinc Sulfate [Zinc-220] 220 mg PO DAILY #5 capsule 02/20/20 Rx Allergies: No Known Allergies Allergy (Verified 02/16/20 00:18) - Discharge Instructions Activity:: Activity as Tolerated Nourishment:: Diabetic Diet, Heart Healthy Diet - Follow up Plan Referrals: Regulo Durham MD [Primary Care Provider] - 7 Days Disposition: HOME Quality - Care Measures CORE MEASURES:: N/A
[2020-02-20] MEDS ORDERED: Potassium Chloride 20 MEQ TAB PO SCH (13:45)
[2020-02-20] MEDS: REMDESIVIR (EUA) 100 MG in Sodium Chloride 0.9% 250 ML 230 ML IV SCH (14:35)
--- NOTE | 2020-02-21 06:17 | PQF ---
CLINICAL DOCUMENTATION CLARIFICATION FORM: Dear : Govind Watkins Date / Time: 02/21/20 0616 Please exercise your independent, professional judgment in responding to the clarification form. Clinical indicators are provided on the bottom of this form for your review Please check appropriate box(es): [ ] Sepsis due to Covid Pneumonia [ x ] Severe sepsis due to Covid Pneumonia with Acute Respiratory Failure [ ] Septic Shock [ ] Localized infection without sepsis [ ] Other diagnosis, please specify [ ] Unable to determine In addition, please specify: Present on Admission (POA): [ x] Yes [ ] No [ ] Unable to determine Physician Signature: Date/Time: For continuity of documentation, please document condition throughout progress notes and discharge summary. Thank You. To be completed by CDI/Coding staff for physician review: Present Clinical Indicators - Signs / Symptoms / Labs Results and Location in Medical Record [X] WBC 5.5, Plt count 231, Neutrophils 67.0, Band 12, Lactic acid 2.3 Laboratory 02/14 [X] PT-PCR: Positive Serology 02/14 [X] Blood culture: No growth in 5 days Microbiology 02/14 [X] BP 115/52, Pulse 78, Resp 18, Temp 98.4 Vital signs 02/14 [X] Lactic acidosis ED notes p9 02/14 [X] Presented with diarrhea and worsening AMS H&P p1 02/14 Dr Araya [X] Encephalopathy H&P p4 02/14 Dr Araya [X] Covid infection H&P p4 02/14 Dr Araya [X] Respiratory failure H&P p4 02/14 Dr Araya [X] Pneumonia H&P p4 02/14 Dr Araya [X] Chest Xray: Increased interstitial markings are present Chest Xray 02/14 [X] UTI DS 02/19 Present Risk Factors Results and Location in Medical Record [X] 85 year-old Female H&P p1 02/14 Dr Araya [X] HTN H&P p1 02/14 Dr Araya [X] DM H&P p1 02/14 Dr Araya [X] Covid infection H&P p4 02/14 Dr Araya [X] Viral Enteritis PN 02/14 [X] UTI DS 02/19 Present Treatments Results and Location in Medical Record [X] IV Azithromycin 500 mg MAY 30 [X] IV Ceftriaxone 2 gm MAY 30 [X] IV Remdesevir 200 mg MAY 30 [X] Convalescent plasma Blood bank 02/15 [X] Isolation Order Dr Watkins 02/14 CDS/Hog Stomach Preparer Signature: Nova Babin Phone #: [phone] Date/Time: 02/21/2020 0616 This is a permanent part of the Medical Record [facility]
== END 2020-02-20 18:26 | disposition home or self-care (01) | DRG 871 ==
LOC: ERS 12:21 → ERHOLD 14:40 → T4-B 18:29
PROVIDERS: ADMIT Hospitalist; ATTEND Internal Medicine
PROC: XW13325 Transfusion of Convalescent Plasma (Nonautologous) into Peripheral Vein, Percutaneous Approach, New Technology Group 5 (ICD-10-PCS; principal; 2020-02-16)
PROC: XW033E5 Introduction of Remdesivir Anti-infective into Peripheral Vein, Percutaneous Approach, New Technology Group 5 (ICD-10-PCS; 2020-02-16)
PROC: 8E0ZXY6 Isolation (ICD-10-PCS; 2020-02-16)
DX: A41.89 Other specified sepsis (principal); U07.1 COVID-19; J12.89 Other viral pneumonia; J96.01 Acute respiratory failure with hypoxia; N39.0 Urinary tract infection, site not specified; E87.2 Acidosis; A08.39 Other viral enteritis; G93.49 Other encephalopathy; R65.20 Severe sepsis without septic shock; I10 Essential (primary) hypertension; E11.65 Type 2 diabetes mellitus with hyperglycemia; M16.10 Unilateral primary osteoarthritis, unspecified hip; E86.0 Dehydration; E87.6 Hypokalemia; Z90.49 Acquired absence of other specified parts of digestive tract; Z90.710 Acquired absence of both cervix and uterus; Z79.899 Other long term (current) drug therapy; Z79.890 Hormone replacement therapy; Z79.4 Long term (current) use of insulin; Z83.3 Family history of diabetes mellitus
CPT/HCPCS: 36415; 36416; 36430; 36600; 71045; 80053; 81003; 81015; 82728; 82805; 83605; 83615; 83690; 83735; 83880; 84443; 84484; 85007; 85025; 85027; 85379; 85652; 86140; 86850; 86900; 86901; 87040; 87086; 87804; 93005; 96365; J0456; J0696; J1100; J1650; J1815; J3490; J7050; P9017; U0002